=== PATIENT | female | born 1985 | race Caucasian/White ===

== ENCOUNTER → 2020-06-04 11:58 | Outpatient (BNVA) | payer MEDICAID, SELFPAY | PROVIDERS: Family Provider Family Medicine; PCP Family Medicine; Referring Provider Family Medicine; Visit Provider Podiatrist Foot & Ankle Surgery | DX: M79.671 Pain in right foot (principal); M79.672 Pain in left foot | CPT/HCPCS: 73630 ==

== ENCOUNTER 2022-03-22 19:03 | Emergency (ER) | payer MEDICAID, SELFPAY ==
[2022-03-22 19:16] VITALS: PULSE 115; RESP 16; TEMP 36.6; O2SAT 95
[2022-03-22 19:20] VITALS: BP 153/97
[2022-03-22 20:16] VITALS: BP 175/108; PULSE 75; RESP 18; O2SAT 96
[2022-03-22 20:22] LABS: Add Urine Microscopic? NO; Charge for UA Resulting for Rev
[2022-03-22 20:23] LABS: Basophils # 0.1 10^3/uL (0.0-0.1); Basophils % 0.6 %; Eosinophils # 0.1 10^3/uL (0.0-0.8); Eosinophils % 0.6 %; Hematocrit 42.1 % (37.0-47.0); Hemoglobin 14.3 g/dL (11.5-15.3); Lymphocytes # 3.5 10^3/uL (0.8-4.8); Lymphocytes % 34.4 %; Mean Corpuscular Hemoglobin 30.6 pg (28.0-34.0); Mean Corpuscular Volume 90.1 fl (81-99); Mean Platelet Volume 10.8 fL (7.4-10.4); Monocytes # 0.8 10^3/uL (0.2-0.9); Monocytes % 7.8 %; Neutrophils # 5.74 10^3/uL (1.8-7.7); Neutrophils % 56.4 %; Nucleated Red Blood Cells % 0 %; Platelet Count 432 10^3/cmm (130-400); Red Blood Count 4.67 10^6/uL (4.1-5.3); Red Cell Distribution Width 12.9 % (12.1-15.1); White Blood Count 10.2 10^3/uL (4.0-10.0)
[2022-03-22 20:25] LABS: Bilirubin Urine Negative (Negative); Blood Urine Negative (Negative); Glucose Urine UA Negative (Normal); Ketones Urine Negative (Negative); Leukocyte Esterase Urine Negative (Negative); Nitrate Urine Negative; Protein Urine Negative (Negative); Urine Appearance Clear (CLEAR); Urine Color Yellow (Yellow); Urobilinogen Urine 0.2 mg/dL (Negative)
--- NOTE | 2022-03-22 20:30 | XRR_ITS ---
PROCEDURE INFORMATION: Exam: XR Abdomen Exam date and time: 03/22/2022 9:02 PM Age: 37 years old Clinical indication: Abdominal pain; Acute; Additional info: Central abdominal pain TECHNIQUE: Imaging protocol: Radiologic exam of the abdomen. Views: 2 Views. Upright and supine views. COMPARISON: CR XR lumbar spine 2-3V* [id number] 05/19/2018 12:08 PM FINDINGS: Gastrointestinal tract: Normal. No bowel dilation. Intraperitoneal space: Normal. No free air. Bones/joints: Unremarkable for age. XR/XR abdomen min 2V [id number] IMPRESSION: No acute findings.
[2022-03-22 21:10] LABS: Alanine Aminotransferase 13 U/L (0-33); Albumin Level 3.7 g/dL (3.5-5.2); Alkaline Phosphatase 44 U/L (35-105); Anion Gap 13.2 (5-19); Aspartate Amino Transferase 14 U/L (0-32); Blood Urea Nitrogen 12 mg/dL (6-20); Calcium 9.1 mg/dL (8.5-10.5); Carbon Dioxide 25 mmol/L (22-29); Chloride 98 mmol/L (98-107); Globulin 2.8 g/dL (1.3-4.6); Glomerular Filtration Rate 113.8 mL/min (90-130); Glucose 93 mg/dL (65-115); Lipase 29 U/L (13-60); Osmolality Calculated 275 mOsm/kg (285-295); Potassium 3.2 mmol/L (3.5-5.1); Sodium 133 mmol/L (136-145); Total Bilirubin 0.2 mg/dL (0.15-1.2); Total Protein 6.5 g/dL (6.6-8.7)
--- NOTE | 2022-03-22 21:21 | CTR_ITS ---
PROCEDURE INFORMATION: Exam: CT Abdomen And Pelvis Without And With Contrast Exam date and time: 03/22/2022 9:40 PM Age: 37 years old Clinical indication: Abdominal pain; Additional info: Central abdominal pain and CVA tenderness TECHNIQUE: Imaging protocol: Computed tomography of the abdomen and pelvis without and with contrast. Radiation optimization: All CT scans at this facility use at least one of these dose optimization techniques: automated exposure control; mA and/or kV adjustment per patient size (includes targeted exams where dose is matched to clinical indication); or iterative reconstruction. Contrast material: OMNIPAQUE 350; Contrast volume: 80 ml; Contrast route: INTRAVENOUS (IV); COMPARISON: CR (ABDOMEN, ) 03/22/2022 9:02 PM RADIATION DOSE METRICS: Total DLP (mGy-cm): 646.98 FINDINGS: Liver: Normal. No mass. Gallbladder and bile ducts: Normal. No calcified stones. No ductal dilation. Pancreas: Normal. No ductal dilation. Spleen: Normal. No splenomegaly. Adrenal glands: Normal. No mass. Kidneys and ureters: No renal stones. No hydronephrosis. Stomach and bowel: Unremarkable. No obstruction. No mucosal thickening. Appendix: No evidence of appendicitis. Intraperitoneal space: Unremarkable. No free air. No significant fluid collection. Vasculature: Unremarkable. No abdominal aortic aneurysm. Lymph nodes: Unremarkable. No enlarged lymph nodes. Urinary bladder: Unremarkable as visualized. Reproductive: Unremarkable as visualized. Bones/joints: No acute fracture. Soft tissues: Unremarkable. CT/CT abdomen pelvis wo/w [id number] IMPRESSION: No acute findings.
[2022-03-22 21:24] VITALS: RESP 21; O2SAT 97
[2022-03-22] MEDS: fentaNYL 50 mcg/mL INJ 2mL 25 MCG IVP ×2 (21:24→23:17)
[2022-03-22] MEDS: iohexol 350 mg/mL 100 mL Btl IV (21:51)
[2022-03-22 23:00] VITALS: BP 168/110; PULSE 84; RESP 23; O2SAT 95
--- NOTE | 2022-03-22 23:03 | W.ED.ABDPA2 ---
Documented by User: MAX Kilpatrick 03/23/22 01:36 HPI - Abdominal Pain General: Chief Complaint: Abdominal Pain Stated Complaint: abd pain Time Seen by Provider: 03/22/22 19:24 History of Present Illness: 37-year-old female in today for complaints of abdominal pain. Patient reports that she has right upper quadrant abdominal pain x2 days. She has been having some nausea and vomiting. She reports that she has vomited numerous times today and had diarrhea as well. She denies any fever or chills. She denies any possibility of . She states that her last menstrual cycle was 5 months ago. She reports her abdominal pain is right upper quadrant and central abdomen. She denies any previous abdominal surgeries. She denies ever having this abdominal pain in the past. Associated Symptoms: Reports diarrhea, nausea and vomiting; Denies chills, dysuria and fever(s) Review of Systems Const: Denies: fever(s), chills or body aches Card: Denies: chest pain or palpitations Resp: Denies: dyspnea GI: Reports: abdominal pain, nausea, vomiting and diarrhea : Denies: flank pain, difficulty voiding, dysuria, urinary frequency, urinary urgency, urinary hesitancy, vaginal bleeding or vaginal discharge PFSH ED PFSH: Surgical History History of exploratory laparotomy Family History Grandfather Cancer Dementia Diabetes Hypertension Mother Cancer Hypertension Psychiatric illness Father Dementia Hypertension Grandfather Dementia Grandmother Dementia Diabetes Hypertension Social History Smoking and tobacco status: current every day smoker cigarettes Packs smoked per day: 0 Second hand smoke exposure: Yes Alcohol intake: never Physical Exam Const: COMMON NORMALS: patient oriented x3 and alert OTHER: Patient is writhing in bed screaming in pain Neck/C-Spine: COMMON NORMALS: no JVD Resp: COMMON NORMALS: No use of accessory muscles and clear to auscultation bilaterally AUSCULTATION: clear to auscultation bilaterally Cardio: COMMON NORMALS: no JVD, regular rate, regular rhythm, S1 normal heart sound present, S2 normal heart sound present and No murmurs present (Cardio) RATE: regular rate RHYTHM: regular rhythm HEART SOUNDS: S1 normal heart sound present and S2 normal heart sound present GI: COMMON NORMALS: Soft to palpation INSPECTION: Yes normal to inspection AUSCULTATION: Yes normoactive bowel sounds PALPATION: Yes Soft to palpation, Yes Tenderness to palpation present (GI) Details: RUQ and other (Periumbilical), Yes Guarding due to palpation present (GI) in the RUQ and No Rebound tenderness present : BLADDER/KIDNEY EXAM: Yes CVA tenderness on the left Back/Pelvis: GENERAL BACK: Yes CVA tenderness Neuro: COMMON NORMALS: patient oriented x3 SENSORIUM/ORIENTATION: Yes alert Course ED course: of note, patient has been vomiting in a bucket however she is putting her finger down her throat to make herself vomit. 0133- Reevaluation after Dilaudid and Haldol. Patient is resting comfortably in bed states that her pain is gone. She is no longer puking. Her blood pressure is much improved. Vital Signs: Vital signs: Vital Signs Temperature 97.8 F 03/22/22 19:16 Pulse Rate 78 03/23/22 01:42 Respiratory Rate 20 H 03/23/22 01:42 Blood Pressure 153/99 03/23/22 01:42 Pulse Oximetry 92 03/23/22 01:00 Oxygen Delivery Me thod 03/22/22 20:16 MDM - Abdominal Pain Medical Decision Making This is a 37-year-old female that is in for acute abdominal pain x2 days. Patient was writhing and screaming in pain upon the beginning of my exam. She reports that she has been vomiting and having diarrhea all day. She does not have any fever or chills. Her blood pressure is elevated which she states is from the pain. Labs are done white blood cell count is minimally elevated. Given her significant amounts of pain periumbilical and right upper quadrant a CT abdomen was done. CT was negative for any acute findings. Labs do not indicate concern for obstructed stone. Pain is treated with fentanyl 25 mcg IV push x2 different doses under the direction of Dr. Sousa. Advised patient that this could likely be biliary colic. We discussed dietary control of this. Patient will need outpatient follow-up for persisting abdominal pain. Testing in the ER today excluded major concerns such as aortic aneurysm, renal calculi, obstructed gallstone, urinary tract infection, appendicitis. Patient blood pressure has been elevated off and on throughout this ER visit. Patient reports that it is just up because she is hurting. Suspect that patient and male inspector golf ball are using a weed vape pen in room. There is a strong odor of marijuana every time I walk into the room. I discussed this case, at length, with Dr. Sousa. We discussed the patient's elevated blood pressure and patient's report of continued pain despite medications provided tonight. I discussed that patient has been talking about not wanting to go home because her mom is a drug addict and her dad is an alcoholic and they hate her. I suspect there is an anxiety component to all of this as well. Dr. Sousa ordered Haldol and Dilaudid to help with patient's pain and anxiety. We will discharge patient to home after medications administered. Allow patient to get some rest. Follow-up with primary care provider next week. Return to the ER for new or worsening symptoms. Lab Data : 03/22/22 20:05 03/22/22 20:35 Labs/Radiology: Radiology Impressions Abdomen X-Ray 03/22/22 20:30 IMPRESSION: No acute findings. Abdomen/Pelvis CT 03/22/22 21:21 IMPRESSION: No acute findings. Laboratory Results WBC 10.2 10^3/uL (4.0-10.0) H 03/22/22 20:05 RBC 4.67 10^6/uL (4.1-5.3) 03/22/22 20:05 Hgb 14.3 g/dL (11.5-15.3) 03/22/22 20:05 Hct 42.1 % (37.0-47.0) 03/22/22 20:05 MCV 90.1 fl (81-99) 03/22/22 20:05 MCH 30.6 pg (28.0-34.0) 03/22/22 20:05 MCHC 34.0 g/dL (30.0-36.0) 03/22/22 20:05 RDW 12.9 % (12.1-15.1) 03/22/22 20:05 Plt Count 432 10^3/cmm (130-400) H 03/22/22 20:05 MPV 10.8 fL (7.4-10.4) H 03/22/22 20:05 Neut % (Auto) 56.4 % 03/22/22 20:05 Lymph % (Auto) 34.4 % 03/22/22 20:05 Mckenzie % (Auto) 7.8 % 03/22/22 20:05 Eos % (Auto) 0.6 % 03/22/22 20:05 Baso % (Auto) 0.6 % 03/22/22 20:05 Neut # (Auto) 5.74 10^3/uL (1.8-7.7) 03/22/22 20:05 Lymph # (Auto) 3.5 10^3/uL (0.8-4.8) 03/22/22 20:05 Mckenzie # (Auto) 0.8 10^3/uL (0.2-0.9) 03/22/22 20:05 Eos # (Auto) 0.1 10^3/uL (0.0-0.8) 03/22/22 20:05 Baso # (Auto) 0.1 10^3/uL (0.0-0.1) 03/22/22 20:05 Nucleated RBC % (auto) 0 % 03/22/22 20:05 Nucleated RBCs # 0.0 /100WBC 03/22/22 20:05 Sodium 133 mmol/L (136-145) L 03/22/22 20:35 Potassium 3.2 mmol/L (3.5-5.1) L 03/22/22 20:35 Chloride 98 mmol/L (98-107) 03/22/22 20:35 Carbon Dioxide 25 mmol/L (22-29) 03/22/22 20:35 Anion Gap 13.2 (5-19) 03/22/22 20:35 BUN 12 mg/dL (6-20) 03/22/22 20:35 Creatinine 0.6 mg/dL (0.5-0.9) 03/22/22 20:35 GFR Calculation 113.8 mL/min (90-130) 03/22/22 20:35 Glucose 93 mg/dL (65-115) 03/22/22 20:35 Calculated Osmolality 275 mOsm/kg (285-295) L 03/22/22 20:35 Calcium 9.1 mg/dL (8.5-10.5) 03/22/22 20:35 Total Bilirubin 0.2 mg/dL (0.15-1.2) 03/22/22 20:35 AST 14 U/L (0-32) 03/22/22 20:35 ALT 13 U/L (0-33) 03/22/22 20:35 Alkaline Phosphatase 44 U/L (35-105) 03/22/22 20:35 Total Protein 6.5 g/dL (6.6-8.7) L 03/22/22 20:35 Albumin 3.7 g/dL (3.5-5.2) 03/22/22 20:35 Globulin 2.8 g/dL (1.3-4.6) 03/22/22 20:35 Lipase 29 U/L (13-60) 03/22/22 20:35 Urine Color Yellow (Yellow) 03/22/22 20:14 Urine Appearance Clear (CLEAR) 03/22/22 20:14 Urine pH 7.0 (5-7) 03/22/22 20:14 Ur Specific [place] 1.010 (1.005-1.030) 03/22/22 20:14 Urine Protein Negative (Negative) 03/22/22 20:14 Urine Glucose (UA) Negative (Normal) 03/22/22 20:14 Urine Ketones Negative (Negative) 03/22/22 20:14 Urine Blood Negative (Negative) 03/22/22 20:14 Urine Nitrate Negative 03/22/22 20:14 Urine Bilirubin Negative (Negative) 03/22/22 20:14 Urine Urobilinogen 0.2 mg/dL (Negative) 03/22/22 20:14 Ur Leukocyte Esterase Negative (Negative) 03/22/22 20:14 Urine HCG, Qual Negative (Negative) 03/22/22 20:14 Urine Opiates Screen Positive ng/mL (Negative) H 03/22/22 20:14 Ur Barbiturates Screen Negative ng/mL (Negative) 03/22/22 20:14 Ur Phencyclidine Scrn Negative ng/mL (Negative) 03/22/22 20:14 Ur Amphetamines Screen Negative ng/mL (Negative) 03/22/22 20:14 U Benzodiazepines Scrn Negative ng/mL (Negative) 03/22/22 20:14 Urine Cocaine Screen Negative ng/mL (Negative) 03/22/22 20:14 U Marijuana (THC) Screen Positive ng/mL (Negative) H 03/22/22 20:14 Discharge Plan Discharge Patient Disposition: Home Clinical Impression: Abdominal pain, Nausea & vomiting Condition: Stable Prescriptions: New ondansetron 4 mg tablet,disintegrating 4 mg PO Q8H PRN (Reason: nausea and vomiting) 2 Days Qty: 6 0RF No Action ropinirole 1 mg tablet 1 mg PO DAILY norethindrone ac-eth estradiol [Junel (21)] 1.5-30 mg-mcg tablet 1 tab PO DAILY clonazepam 0.5 mg tablet 0.5 mg PO TID PRN acetaminophen [Tylenol Extra Strength] 500 mg tablet 1,000 mg PO BID 7 Days Qty: 14 0RF silver sulfadiazine 1 % cream 1 applic topical BID 14 Days Qty: 50 0RF Rx Instructions: apply a 1.5 mm thickness Discharge Orders: Discharge ED (Routine); Ordered 03/23/22 Ordered By: Irma Zimmerman Referrals: Trevor Holland MD [Primary Care Provider] - Discharge Diet: Low Fat Discharge Activity: Resume usual activity Patient Instructions: Abdominal Pain (ED) Activity Restrictions/Additional Instructions: I recommend a diet decrease fat, decrease nicotine, decrease caffeine, decrease chocolate, decrease lettuce, decreased red sauces. Eating mostly bland foods will help to settle the stomach. Make sure that you are staying well-hydrated. Follow-up with primary care provider next week for reevaluation. Return to the ER as needed for new or worsening symptoms. Coding Level of Care Code ED Bar Host/Hostess for Chg Fwd Exam Detailed Documented by User: Asher Sousa DO 03/23/22 03:00 HPI - Abdominal Pain General: Chief Complaint: Abdominal Pain Stated Complaint: abd pain Time Seen by Provider: 03/22/22 19:24 PFSH ED PFSH: Surgical History History of exploratory laparotomy Family History Grandfather Cancer Dementia Diabetes Hypertension Mother Cancer Hypertension Psychiatric illness Father Dementia Hypertension Grandfather Dementia Grandmother Dementia Diabetes Hypertension Social History Smoking and tobacco status: current every day smoker cigarettes Packs smoked per day: 0 Second hand smoke exposure: Yes Alcohol intake: never Course Vital Signs: Vital signs: Vital Signs Temperature 97.8 F 03/22/22 19:16 Pulse Rate 78 03/23/22 01:42 Respiratory Rate 20 H 03/23/22 01:42 Blood Pressure 153/99 03/23/22 01:42 Pulse Oximetry 92 03/23/22 01:00 Oxygen Delivery Me thod 03/22/22 20:16 MDM - Abdominal Pain Medical Decision Making This is a 37-year-old female that is in for acute abdominal pain x2 days. Patient was writhing and screaming in pain upon the beginning of my exam. She reports that she has been vomiting and having diarrhea all day. She does not have any fever or chills. Her blood pressure is elevated which she states is from the pain. Labs are done white blood cell count is minimally elevated. Given her significant amounts of pain periumbilical and right upper quadrant a CT abdomen was done. CT was negative for any acute findings. Labs do not indicate concern for obstructed stone. Pain is treated with fentanyl 25 mcg IV push x2 different doses under the direction of Dr. Sousa. Advised patient that this could likely be biliary colic. We discussed dietary control of this. Patient will need outpatient follow-up for persisting abdominal pain. Testing in the ER today excluded major concerns such as aortic aneurysm, renal calculi, obstructed gallstone, urinary tract infection, appendicitis. Patient blood pressure has been elevated off and on throughout this ER visit. Patient reports that it is just up because she is hurting. Suspect that patient and male inspector golf ball are using a weed vape pen in room. There is a strong odor of marijuana every time I walk into the room. I discussed this case, at length, with Dr. Sousa. We discussed the patient's elevated blood pressure and patient's report of continued pain despite medications provided tonight. I discussed that patient has been talking about not wanting to go home because her mom is a drug addict and her dad is an alcoholic and they hate her. I suspect there is an anxiety component to all of this as well. Dr. Sousa ordered Haldol and Dilaudid to help with patient's pain and anxiety. We will discharge patient to home after medications administered. Allow patient to get some rest. Follow-up with primary care provider next week. Return to the ER for new or worsening symptoms. This patient was originally seen by ANA LAURA Vargas.? I agree with her history, evaluation, and treatment. Lab Data : 03/22/22 20:05 03/22/22 20:35 Labs/Radiology: Radiology Impressions Abdomen X-Ray 03/22/22 20:30 IMPRESSION: No acute findings. Abdomen/Pelvis CT 03/22/22 21:21 IMPRESSION: No acute findings. Laboratory Results WBC 10.2 10^3/uL (4.0-10.0) H 03/22/22 20:05 RBC 4.67 10^6/uL (4.1-5.3) 03/22/22 20:05 Hgb 14.3 g/dL (11.5-15.3) 03/22/22 20:05 Hct 42.1 % (37.0-47.0) 03/22/22 20:05 MCV 90.1 fl (81-99) 03/22/22 20:05 MCH 30.6 pg (28.0-34.0) 03/22/22 20:05 MCHC 34.0 g/dL (30.0-36.0) 03/22/22 20:05 RDW 12.9 % (12.1-15.1) 03/22/22 20:05 Plt Count 432 10^3/cmm (130-400) H 03/22/22 20:05 MPV 10.8 fL (7.4-10.4) H 03/22/22 20:05 Neut % (Auto) 56.4 % 03/22/22 20:05 Lymph % (Auto) 34.4 % 03/22/22 20:05 Mckenzie % (Auto) 7.8 % 03/22/22 20:05 Eos % (Auto) 0.6 % 03/22/22 20:05 Baso % (Auto) 0.6 % 03/22/22 20:05 Neut # (Auto) 5.74 10^3/uL (1.8-7.7) 03/22/22 20:05 Lymph # (Auto) 3.5 10^3/uL (0.8-4.8) 03/22/22 20:05 Mckenzie # (Auto) 0.8 10^3/uL (0.2-0.9) 03/22/22 20:05 Eos # (Auto) 0.1 10^3/uL (0.0-0.8) 03/22/22 20:05 Baso # (Auto) 0.1 10^3/uL (0.0-0.1) 03/22/22 20:05 Nucleated RBC % (auto) 0 % 03/22/22 20:05 Nucleated RBCs # 0.0 /100WBC 03/22/22 20:05 Sodium 133 mmol/L (136-145) L 03/22/22 20:35 Potassium 3.2 mmol/L (3.5-5.1) L 03/22/22 20:35 Chloride 98 mmol/L (98-107) 03/22/22 20:35 Carbon Dioxide 25 mmol/L (22-29) 03/22/22 20:35 Anion Gap 13.2 (5-19) 03/22/22 20:35 BUN 12 mg/dL (6-20) 03/22/22 20:35 Creatinine 0.6 mg/dL (0.5-0.9) 03/22/22 20:35 GFR Calculation 113.8 mL/min (90-130) 03/22/22 20:35 Glucose 93 mg/dL (65-115) 03/22/22 20:35 Calculated Osmolality 275 mOsm/kg (285-295) L 03/22/22 20:35 Calcium 9.1 mg/dL (8.5-10.5) 03/22/22 20:35 Total Bilirubin 0.2 mg/dL (0.15-1.2) 03/22/22 20:35 AST 14 U/L (0-32) 03/22/22 20:35 ALT 13 U/L (0-33) 03/22/22 20:35 Alkaline Phosphatase 44 U/L (35-105) 03/22/22 20:35 Total Protein 6.5 g/dL (6.6-8.7) L 03/22/22 20:35 Albumin 3.7 g/dL (3.5-5.2) 03/22/22 20:35 Globulin 2.8 g/dL (1.3-4.6) 03/22/22 20:35 Lipase 29 U/L (13-60) 03/22/22 20:35 Urine Color Yellow (Yellow) 03/22/22 20:14 Urine Appearance Clear (CLEAR) 03/22/22 20:14 Urine pH 7.0 (5-7) 03/22/22 20:14 Ur Specific [place] 1.010 (1.005-1.030) 03/22/22 20:14 Urine Protein Negative (Negative) 03/22/22 20:14 Urine Glucose (UA) Negative (Normal) 03/22/22 20:14 Urine Ketones Negative (Negative) 03/22/22 20:14 Urine Blood Negative (Negative) 03/22/22 20:14 Urine Nitrate Negative 03/22/22 20:14 Urine Bilirubin Negative (Negative) 03/22/22 20:14 Urine Urobilinogen 0.2 mg/dL (Negative) 03/22/22 20:14 Ur Leukocyte Esterase Negative (Negative) 03/22/22 20:14 Urine HCG, Qual Negative (Negative) 03/22/22 20:14 Urine Opiates Screen Positive ng/mL (Negative) H 03/22/22 20:14 Ur Barbiturates Screen Negative ng/mL (Negative) 03/22/22 20:14 Ur Phencyclidine Scrn Negative ng/mL (Negative) 03/22/22 20:14 Ur Amphetamines Screen Negative ng/mL (Negative) 03/22/22 20:14 U Benzodiazepines Scrn Negative ng/mL (Negative) 03/22/22 20:14 Urine Cocaine Screen Negative ng/mL (Negative) 03/22/22 20:14 U Marijuana (THC) Screen Positive ng/mL (Negative) H 03/22/22 20:14 Discharge Plan Discharge Patient Disposition: Home Clinical Impression: Abdominal pain, Nausea & vomiting Condition: Stable Prescriptions: New ondansetron 4 mg tablet,disintegrating 4 mg PO Q8H PRN (Reason: nausea and vomiting) 2 Days Qty: 6 0RF No Action ropinirole 1 mg tablet 1 mg PO DAILY norethindrone ac-eth estradiol [Junel 1.5/30 (21)] 1.5-30 mg-mcg tablet 1 tab PO DAILY clonazepam 0.5 mg tablet 0.5 mg PO TID PRN acetaminophen [Tylenol Extra Strength] 500 mg tablet 1,000 mg PO BID 7 Days Qty: 14 0RF silver sulfadiazine 1 % cream 1 applic topical BID 14 Days Qty: 50 0RF Rx Instructions: apply a 1.5 mm thickness Discharge Orders: Discharge ED (Routine); Ordered 03/23/22 Ordered By: Irma Zimmerman Referrals: Trevor Holland MD [Primary Care Provider] - Discharge Diet: Low Fat Discharge Activity: Resume usual activity Patient Instructions: Abdominal Pain (ED) Activity Restrictions/Additional Instructions: I recommend a diet decrease fat, decrease nicotine, decrease caffeine, decrease chocolate, decrease lettuce, decreased red sauces. Eating mostly bland foods will help to settle the stomach. Make sure that you are staying well-hydrated. Follow-up with primary care provider next week for reevaluation. Return to the ER as needed for new or worsening symptoms. Coding Level of Care Code ED Bar Host/Hostess for Yfng Fwd Exam Detailed
[2022-03-22 23:17] VITALS: RESP 18; O2SAT 97
[2022-03-22 23:49] LABS: Amphetamines Screen Urine Negative (Negative); Barbiturates Screen Urine Negative (Negative); Benzodiazepines Screen Urine Negative (Negative); Cocaine Screen Urine Negative (Negative); Opiate Screen Urine Positive (Negative); PCP Screen Urine Negative (Negative); THC Screen Urine Positive (Negative)
[2022-03-22] MEDS: lidocaine 2% viscous 15 ML, aluminum-mag hydrox-simethicon 30 ML, sucralfate oral liq 1 GM PO (23:50)
[2022-03-23 00:24] VITALS: RESP 18; O2SAT 96
[2022-03-23] MEDS: fentaNYL 50 mcg/mL INJ 2mL 25 MCG IVP (00:24)
[2022-03-23 01:00] VITALS: BP 176/103; PULSE 86; RESP 20; O2SAT 92
[2022-03-23] MEDS: HYDROmorphone 1 mg/mL INJ 1 mL IVP (01:15)
[2022-03-23] MEDS: haloperidol inj 5 mg/mL INJ 1 mL 3 MG IVP (01:15)
[2022-03-23 01:42] VITALS: BP 153/99; PULSE 78; RESP 20
== END 2022-03-23 01:44 | disposition home or self-care (01) ==
PROVIDERS: Emergency Provider Nurse Practitioner Family; PCP Family Medicine
DX: R10.9 Unspecified abdominal pain (principal); R11.2 Nausea with vomiting, unspecified; F17.210 Nicotine dependence, cigarettes, uncomplicated
CPT/HCPCS: 74019; 74178; 80053; 80306; 81003; 81025; 83690; 85025; 96374; 96375; 96376; 99285; J1170; J1630; J3010; Q9967

== ENCOUNTER → 2022-07-11 15:03 | Outpatient (BNVA) | payer MEDICAID, SELFPAY | PROVIDERS: PCP Family Medicine; Visit Provider Emergency Medicine | DX: M54.9 Dorsalgia, unspecified (principal); J02.9 Acute pharyngitis, unspecified | CPT/HCPCS: 81000; 87071; 87880 ==